=== PATIENT | female | born 2000 | race Caucasian/White ===

== ENCOUNTER 2020-03-27 10:51 | Emergency (ER) | payer OTHER ==
--- NOTE | 2020-03-27 11:29 | ER Document Report ---
ED Medical Screen (RME) - General Chief Complaint: Eye Problem Stated Complaint: EYE PAIN Time Seen by Provider: 03/27/20 11:27 Notes: HPI: 20-year-old female presenting with 2 days of right eye redness discharge and swelling. Patient went to sleep on the couch and woke up with some redness of the eye now feels that there is some blood in the eye, hurts to blink she has light sensitivity. No definitive trauma. No recent ill contacts no recent illness. She believes she is up-to-date on her tetanus vaccination PHYSICAL EXAMINATION: Right eye with swollen upper and lower lids. There is conjunctival irritation and injection in the lower aspect of the eye there is a subconjunctival hemorrhage in the upper aspect of the eye. Limited exam in triage I have greeted and performed a rapid initial assessment of this patient. A comprehensive ED assessment and evaluation of the patient, analysis of test results and completion of medical decision making process will be conducted by an additional ED providers. - Related Data Allergies/Adverse Reactions: No Known Allergies Allergy (Unverified 03/27/20 11:25) Past Medical History - Social History Chew tobacco use (# tins/day): No Frequency of alcohol use: None Drug Abuse: None Physical Exam - Vital signs Vitals: Temp Pulse Resp BP Pulse Ox 99.0 F 95 17 135/91 H 100 03/27/20 10:56 03/27/20 10:56 03/27/20 10:56 03/27/20 10:56 03/27/20 10:56 Course - Vital Signs Vital signs: Temp Pulse Resp BP Pulse Ox 99.0 F 95 17 135/91 H 100 03/27/20 10:56 03/27/20 10:56 03/27/20 10:56 03/27/20 10:56 03/27/20 10:56
[2020-03-27] MEDS ORDERED: TETRACAINE HCL 0.5% OPH SOLN 4 ML OD ONE (15:23)
--- NOTE | 2020-03-27 15:24 | ER Document Report ---
ED Eye Complaint - General Chief Complaint: Eye Problem Stated Complaint: EYE PAIN Time Seen by Provider: 03/27/20 11:27 Primary Care Provider: [facility] [Provider Group] - Follow up as needed SAMI CERVANTES DO [ACTIVE STAFF] - Follow up as needed Mode of Arrival: Ambulatory Information source: Patient Notes: She presents complaining of right eye irritation for the past 2 days. Patient does report some light sensitivity. Patient states yesterday she noticed what appeared to be blood to her sclera. Patient denies any injury to the eye. Patient denies any use of contact lenses. Patient is supposed to wear glasses but did not bring them and has not worn them for some time. Patient states that when she wakes up in the morning her eye is matted shut with purulent drainage. - HPI Onset: Other - 2 days Eye location: Right Pain Level: 1 Safety glasses worn: No Contact lenses worn: No Associated symptoms: Photophobia, Redness, Matting, Foreign body sensation - Related Data Allergies/Adverse Reactions: No Known Allergies Allergy (Unverified 03/27/20 11:25) Past Medical History - General Information source: Patient - Social History Smoking Status: Current Every Day Smoker Chew tobacco use (# tins/day): No Frequency of alcohol use: None Drug Abuse: None Lives with: Family Family History: Reviewed & Not Pertinent - Medical History Medical History: Negative Past Surgical History: Reports: Hx Orthopedic Surgery - leydi shoulders Review of Systems - Review of Systems Constitutional: No symptoms reported. denies: Fever EENT: Eye pain, Eye discharge, Tearing. denies: Double vision Cardiovascular: No symptoms reported Respiratory: No symptoms reported Gastrointestinal: No symptoms reported. denies: Vomiting Genitourinary: No symptoms reported Female Genitourinary: No symptoms reported Musculoskeletal: No symptoms reported Skin: No symptoms reported Hematologic/Lymphatic: No symptoms reported Neurological/Psychological: No symptoms reported Physical Exam - Vital signs Vitals: Temp Pulse Resp BP Pulse Ox 99.0 F 95 17 135/91 H 100 03/27/20 10:56 03/27/20 10:56 03/27/20 10:56 03/27/20 10:56 03/27/20 10:56 - General General appearance: Appears well, Alert In distress: None - HEENT Head: Normocephalic Eyes: Tears Conjunctiva: Other - Subconjunctival hemorrhage to the right eye Cornea: Normal. No: Corneal abrasion, Corneal ulcer, Dendrite, Embedded foreign body, Flourescein stain uptake, Opacified, Superficial foreign body Extraocular movements intact: Yes Eyelashes: Normal Pupils: PERRL Visual acuity- Right eye: 20/50 Visual acuity- Left eye: 20/13 Visual acuity- Both eyes: 20/15 Corrective lenses worn: No Right intraocular pressure: 19 Nasal: Normal Mouth/Lips: Normal Mucous membranes: Normal - Respiratory Respiratory status: No respiratory distress - Extremities General upper extremity: Normal inspection, Normal ROM General lower extremity: Normal inspection, Normal ROM - Neurological Neuro grossly intact: Yes Cognition: Normal Bibi Coma Scale Eye Opening: Spontaneous [place] Coma Scale Verbal: Oriented Bibi Coma Scale Motor: Obeys Commands Bibi Coma Scale Total: 15 - Psychological Associated symptoms: Normal affect, Normal mood - Skin Skin Temperature: Warm Skin Moisture: Dry Skin Color: Normal Course - Re-evaluation Re-evalutation: 03/27/20 15:46 Patient's right eyelid inverted during examination, no foreign body noted, extraocular movements intact, no fluorescein uptake. Patient with subconjunctival hemorrhage, positive matting mucopurulent drainage to eyelashes - Vital Signs Vital signs: Temp Pulse Resp BP Pulse Ox 98.6 F 85 16 128/82 H 100 03/27/20 15:55 03/27/20 15:55 03/27/20 15:55 03/27/20 15:55 03/27/20 15:55 Procedures - Eye Procedure Right Fluorescein applied: Right Slit lamp used: Yes Eyes picture: 1 - Subconjunctival hemorrhage Discharge - Discharge Clinical Impression: Conjunctivitis Qualifiers: Conjunctivitis type: acute Acute conjunctivitis type: unspecified Laterality: right Qualified Code(s): H10.31 - Unspecified acute conjunctivitis, right eye Subconjunctival bleed Qualifiers: Laterality: right Qualified Code(s): H11.31 - Conjunctival hemorrhage, right eye Condition: Stable Disposition: HOME, SELF-CARE Instructions: Conjunctivitis ([facility]), Eyedrop Use ([facility]), Subconjunctival Hemorrhage ([facility]) Additional Instructions: Return immediately for any new or worsening symptoms Followup with your primary care provider, call tomorrow to make a followup appointment Follow-up with ophthalmology for recheck, contact their office tomorrow for follow-up Prescriptions: Polymyxin B Sulfate/Tmp [Polytrim Oph Soln 10 ml] 1 drop RT_EYE ASDIR #1 bottle Referrals: SAMI CERVANTES DO [ACTIVE STAFF] - Follow up as needed OFFICE [facility] [Provider Group] - Follow up as needed
[2020-03-27 16:02] VITALS: BP 128/82
== END 2020-03-27 16:02 | disposition home or self-care (01) ==
LOC: ER 10:51
DX: H10.31 Unspecified acute conjunctivitis, right eye (principal); H11.31 Conjunctival hemorrhage, right eye; F17.200 Nicotine dependence, unspecified, uncomplicated; Z91.19 Patient's noncompliance with other medical treatment and regimen
CPT/HCPCS: 99283; J3490